=== PATIENT | female | born 1960 | race Caucasian/White ===

== ENCOUNTER 2024-02-12 09:45 | Outpatient (OUT) | payer OTHER, SELFPAY ==
--- NOTE | 2024-02-12 | XR_ITS ---
The [address] [address] Patient Name: YU HANSEN MRN: [id number] date: 1960 Sex: F Assigned Patient Location: Current Patient Location: Accession/Order Number: [id number] Exam Date: 02/12/2024 09:47 Report Date: 02/12/2024 10:59 At the request of: ARISTIDES RAJAN Procedure: XR foot DOLORES min 3V EXAMINATION: XR foot DOLORES min 3V HISTORY: BILATERAL FOOT PAIN COMPARISON: No relevant comparison available. FINDINGS: RIGHT FINDINGS: BONES: No acute fracture or dislocation. Minimal enthesopathic spurring plantar calcaneus SOFT TISSUES: Negative. No visible soft tissue swelling. OTHER: Negative. LEFT FINDINGS: BONES: No acute fracture or dislocation. Mild enthesopathic spurring of the calcaneus at the Achilles and plantar insertions SOFT TISSUES: Negative. No visible soft tissue swelling. OTHER: Negative. XR/XR foot DOLORES min 3V IMPRESSION: RIGHT CONCLUSION: Minimal calcaneal enthesopathy LEFT CONCLUSION: Mild calcaneal enthesopathy Electronically authenticated by: RADHA ZULUAGA Date: 02/12/2024 10:59
== END 2024-02-12 09:46 | disposition home or self-care (01) ==
PROVIDERS: Visit Provider Podiatrist Foot & Ankle Surgery
DX: M79.671 Pain in right foot (principal); M79.672 Pain in left foot; M77.32 Calcaneal spur, left foot; M77.31 Calcaneal spur, right foot
CPT/HCPCS: 73630